=== PATIENT | female | born 1975 | race African-American/Black ===

== ENCOUNTER 2020-08-17 15:47 | Emergency (ER) | payer SELFPAY ==
[~2020-08-17] VITALS: Ht 167.6 cm; Wt 56.7 kg
[~2020-08-17 15:47] MED LIST: KEPPRA500 M4 ORAL
--- NOTE | 2020-08-17 15:47 | NUR ---
ED Nurse Note:pt. was BIBA from assisted living s/p unwitnessed seizure no injury reported, pt. is A/Ox4 ambulatory, skin is intact
--- NOTE | 2020-08-17 15:50 | NUR ---
ELOPEMENT:pt. left as soon as she got off transpot stretcher, ER notified
--- NOTE | 2020-08-17 16:03 | Emergency Room Report ---
History of Present Illness General Chief Complaint: Seizure Present Illness HPI 44-year-old female with a witnessed tonic-clonic seizure. Patient says that she has had a seizure disorder for many years but has not taken any antiepileptics. Paramedics state that the patient had a witnessed tonic-clonic like episode on the street earlier today without any trauma. Patient immediately awoke and had no postictal type altered mental status and was completely awake and alert. In the ambulance en route to the emergency department the patient had a normal blood glucose and she became very agitated and was combative and cursing at the paramedics. She was given 0.5 mg of Versed IV with some resolution of her agitation. However in the emergency department the patient was highly agitated and refusing answer questions. She stood up out of the bed and ripped out the IV that was in her right hand dripping blood on the floor. Patient said "get me the fuck out of here, fuck all of this shit." Before the patient was able to be calmed she eloped out of the emergency department. Allergies: Coded Allergies: No Known Allergies (Unverified , 08/17/20) COVID-19 Screening Contact w/high risk pt: No Experienced COVID-19 symptoms?: No COVID-19 Testing performed [employer]: No Physical Exam Vital Signs Date Time Temp Pulse Resp B/P (MAP) Pulse Ox O2 Delivery O2 Flow Rate FiO2 08/17/20 15:35 98.8 101 22 114/69 (84) 95 Room Air Sp02 EP Interpretation: reviewed, normal General Appearance: normal inspection, no apparent distress, alert Head: normocephalic, atraumatic Eyes: bilateral eye normal inspection, bilateral eye PERRL ENT: hearing grossly normal, normal pharynx, no angioedema, normal voice Neck: full range of motion, supple/symm/no masses Respiratory: chest non-tender, lungs clear, normal breath sounds, speaking full sentences Cardiovascular #1: regular rate, rhythm, no edema Cardiovascular #2: 2+ carotid (R), 2+ carotid (L), 2+ radial (R), 2+ radial (L), 2+ dorsalis pedis (R), 2+ dorsalis pedis (L) Gastrointestinal: normal bowel sounds, non tender, soft, non-distended, no guarding, no rebound Rectal: deferred Genitourinary: normal inspection, no CVA tenderness Musculoskeletal: back normal, normal range of motion, calf tenderness, gait/station normal, non-tender Neurologic: alert, motor strength/tone normal, sensory intact, responsive, speech normal Psychiatric: other - Angry, agitated, cursing at staff Medical Decision Making Diagnostic Impression: Primary Impression: Seizure disorder ER Course See HPI for course of events. Patient eloped just after physical examination was completed. Last Vital Signs Date Time Temp Pulse Resp B/P (MAP) Pulse Ox O2 Delivery O2 Flow Rate FiO2 08/17/20 15:35 98.8 101 22 114/69 (84) 95 Room Air Disposition: ELOPED Condition: Stable Scripts Levetiracetam (KEPPRA) 500 Mg Tablet 500 MG ORAL EVERY 12 HOURS, #60 TAB 0 Refills Prov: Burke Parker M.D. 08/17/20 Referrals: [facility] Daniel Rojas Comp. [facility] Patient Instructions: Seizure, Adult Burke Parker M.D. Aug 17, 2020 16:03
[2020-08-17 17:01] VITALS: BP 114/69
== END 2020-08-17 15:50 | disposition left against medical advice (07) ==
LOC: EDBD 15:47 → EMR 15:48
DX: G40.909 Epilepsy, unspecified, not intractable, without status epilepticus (principal); R45.1 Restlessness and agitation
CPT/HCPCS: 99282